=== PATIENT | male | born 1975 | race Caucasian/White ===

== ENCOUNTER 2018-04-15 14:02 | Outpatient (CLI) | payer BC ==
[~2018-04-15] VITALS: Ht 185.4 cm; Wt 102.1 kg
[2018-04-15] MEDS ORDERED: RIFA550T PO (14:03)
== END 2018-04-15 14:04 ==
LOC: PREOP 14:02
PROVIDERS: ATTEND Surgery
DX: Z01.818 Encounter for other preprocedural examination (principal)

== ENCOUNTER 2018-04-20 05:38 | Outpatient (CLI) | payer BC ==
[~2018-04-20] VITALS: Ht 185.4 cm; Wt 102.1 kg
[~2018-04-20 05:38] MED LIST: RIFA550T PO
== END 2018-04-20 10:38 | disposition home or self-care (01) ==
LOC: PREOP 05:38
PROVIDERS: ATTEND Surgery
DX: Z01.818 Encounter for other preprocedural examination (principal)
CPT/HCPCS: 87081

== ENCOUNTER 2018-04-20 09:47 | Day surgery (SDC) | payer BC ==
[~2018-04-20] VITALS: Ht 185.4 cm; Wt 102.1 kg
[2018-04-20] MEDS ORDERED: NS IV 500 ML 500 ML ONE (10:02)
[2018-04-20] MEDS ORDERED: NS IV 500 ML 500 ML IV PRN (10:02)
[2018-04-20] MEDS ORDERED: MIDAZOLAM 2 MG/2 ML (VERSED) VIAL IVP ONE (10:15)
[2018-04-20] MEDS ORDERED: fentaNYL INJECTION 100 MCG/2 ML AMP IVP ONE (10:15)
[2018-04-20 10:17] VITALS: BP 143/92
--- NOTE | 2018-04-20 10:34 | Conscious Sedation/ASA ---
Conscious Sedation Pre-Proced Time 10:33 ASA Score 2 For ASA 3 and 4: Consider anesthesia and medical clearance. Also, for patients with a history of failed moderate sedation consider anesthesia. Airway Lungs Heart ASA score ASA 1: a normal healthy patient ASA 2: a patient with a mild systemic disease (mid diabetes, controlled hypertension, obesity ASA 3: a patient with a severe systemic disease that limits activity (angina , COPD, prior Myocardial infarction) ASA 4: a patient with an incapacitating disease that is a constant threat to life (CHF, renal failure) ASA 5: a moribund patient not expected to survive 24 hrs. (ruptured aneurysm) ASA 6: a declared brain- patient whose organs are being harvested. For emergent operations, add the letter E after the classification Mallampati Classification Grade 2 Sedation Plan Discussed options with patient/fam The patient is an appropriate candidate to undergo the planned procedure, sedation, and anesthesia. The patient immediately re-assessed prior to indication. ALKA HOOVER MD Apr 20, 2018 10:34
[2018-04-20] MEDS ORDERED: fentaNYL INJECTION 100 MCG/2 ML AMP ONE (12:07)
[2018-04-20] MEDS ORDERED: MIDAZOLAM 2 MG/2 ML (VERSED) VIAL ONE ×4 (12:07)
--- NOTE | 2018-04-20 12:38 | Endo Procedure Record ---
Endo Procedure Report Date of Procedure Last Colonoscopy: No Apr 20, 2018 Surgeon (s) ALKA HOOVER MD Post Procedure/Op Diagnosis 2 mm cecal polyp Procedure Performed colonoscopy to cecum Hot biopsy polypectomy Description of Procedure Anesthesia Type: Conscious Sedation Specimen(s) collected/removed cecal polyp Description of the Procedure Indication for the procedure: This gentleman came in for colonoscopy to investigate long-term diarrhea. He reported a family history of Crohn's disease. Informed consent was obtained after reviewing the procedure in detail. Description of the procedure: He was placed in left lateral rectus position and his vital signs were monitored. Conscious sedation was achieved using Versed and fentanyl. Digital rectal examination was unremarkable. The colonoscope was then introduced into the rectum and advanced to the cecum The quality of bowel preparation was rather sub-optimal. I was able to suction the liquid fecal material and complete examination. The scope was then retracted slowly and the mucosa examined in a systematic fashion. Findin mm polyp at the cecum, that was excised with hot biopsy forceps He tolerated the procedure well and was taken back to the nursing area in a stable condition. Impression: Chronic diarrhea. No evidence of inflammatory bowel disease. Incidental, small cecal polyp excised. Recommend repeating in 5 years. Copy Copies To 1: JESUS LESTER MD, XAVIER M MD Apr 20, 2018 12:38
--- NOTE | 2018-04-20 12:39 | Discharge Inst-Simple/Standard ---
Discharge Inst-Standard Discharge Medications New, Converted or Re-Newed RX: Other Patient Instructions/Follow Up Plan of Care/Instructions/FU: to return for hernia surgery as scheduled. Repeat colonoscopy in 5 years Activity as Tolerated: Yes Discharge Diet: No Restrictions ALKA HOOVER MD Apr 20, 2018 12:39
[2018-04-20 13:05] VITALS: BP 107/64
[2018-04-20 13:35] VITALS: BP 137/85
[2018-04-20 13:45] VITALS: BP 137/85
== END 2018-04-20 13:45 | disposition home or self-care (01) ==
LOC: ENDO 09:47
PROVIDERS: ATTEND Surgery
DX: D12.0 Benign neoplasm of cecum (principal); K52.9 Noninfective gastroenteritis and colitis, unspecified; K43.9 Ventral hernia without obstruction or gangrene; Z83.79 Family history of other diseases of the digestive system; F17.290 Nicotine dependence, other tobacco product, uncomplicated; Z80.3 Family history of malignant neoplasm of breast

== ENCOUNTER 2018-04-24 06:00 | Day surgery (SDC) | payer BC ==
[~2018-04-24] VITALS: Ht 185.4 cm; Wt 108.9 kg
[2018-04-24 06:10] VITALS: BP 133/95
[2018-04-24] MEDS: LACTATED RINGERS 1,000 ML IV PRN ×2 (06:20→09:05)
[2018-04-24] MEDS ORDERED: ceFAZolin 2 GM IV Premixed 50 ML ONE (06:32)
[2018-04-24] MEDS ORDERED: ceFAZolin 2 GM IV Premixed 50 ML IV ONE (06:45)
[2018-04-24] MEDS ORDERED: fentaNYL INJECTION 100 MCG/2 ML AMP ONE ×2 (06:50→09:25)
[2018-04-24] MEDS ORDERED: ONDANSETRON 4 MG/2 ML (SDV) Z0FRAN ONE (06:50)
[2018-04-24] MEDS ORDERED: ROCURONIUM 10 MG/ML 5 ML SYRINGE IV ONE ×2 (06:50→09:29)
[2018-04-24] MEDS ORDERED: LIDOCAINE PF 2% 5 ML (XYLOCAINE) VIAL ONE (06:50)
[2018-04-24] MEDS ORDERED: proPOfol 200 MG/20 ML (DIPRIVAN) VIAL IV ONE (06:50)
[2018-04-24] MEDS ORDERED: MIDAZOLAM 2 MG/2 ML (VERSED) VIAL ONE (06:50)
[2018-04-24] MEDS ORDERED: DEXAMETHASONE 10 MG/ML (DECADRON) 1 ML VIAL ONE (06:54)
[2018-04-24] MEDS ORDERED: SEVOFLURANE (ULTANE) 15 ML INHAL SOLN ONE ×9 (06:54→11:02)
[2018-04-24] MEDS ORDERED: BUP/EPI 0.5% 1:200,000 (SENSORCAINE) 30 ML VIAL ONE (07:22)
--- NOTE | 2018-04-24 08:23 | Progress Note-Pre Operative ---
Pre-Operative Progress Note H&P Reviewed The H&P was reviewed, patient examined and no changes noted. Date Seen by Provider: Apr 16, 2018 Time Seen by Provider: 15:00 Date H&P Reviewed: Apr 24, 2018 Time H&P Reviewed: 08:23 Pre-Operative Diagnosis: Ventral hernia ALKA HOOVER MD Apr 24, 2018 08:23
[2018-04-24] MEDS ORDERED: BUPIVACAINE 0.5% 30 ML (SENSORCAINE) VIAL ONE (09:45)
[2018-04-24] MEDS ORDERED: GLYCOPYRROLATE 0.2 MG/ML (ROBINUL) 2 ML VIAL ONE (09:48)
[2018-04-24] MEDS ORDERED: NEOSTIGMINE 1 MG/ML 5 ML SYRINGE ONE (09:48)
[2018-04-24] MEDS ORDERED: OXYC1TAB87 PO (09:58)
--- NOTE | 2018-04-24 09:58 | Operative Report ---
Operative Report Date of Procedure/Surgery Apr 24, 2018 Surgeon (s) ALKA HOOVER MD Projection Engineer (s): N/A Post-Operative Diagnosis Ventral hernia Procedure Performed Robotic assisted repair with mesh Description of Procedure Anesthesia Type: General Estimated blood loss (mL): Minimal Specimen(s) collected/removed Hernia contents Description of the Procedure Indication for the procedure: This gentleman presented with a symptomatic, primary ventral hernia, in relation to his umbilicus. He was offered repair using minimally invasive technique with robotic assistance and reinforcement with mesh. Informed consent was obtained after reviewing the operative details and complications of hematoma, infection of the mesh and a low incidence of recurrence. Description of the procedure: He was placed supine on the operative table and general anesthesia induced. 2 g of Ancef were administered intravenously as prophylaxis against wound infection. Sequential compression devices were placed around his legs, to minimize the risk of venous thrombosis. Abdomen was prepared and draped in the usual sterile manner. Pneumoperitoneum was established using a Veress needle introduced over the right subcostal region , along the mid clavicular line. Intra-abdominal pressure was maintained at 15 mmHg, using carbon dioxide insufflation. A 12 mm trocar was placed and anatomy visualized using the high definition, 3-dimensional laparoscope, associated with da Darrel system. Extra-peritoneal fat was contained within the hernia, the defect measuring about 2 cm in diameter. The area under direct view, I placed another 12 mm trocar over the right side of the abdomen, along the mid axillary line, followed by an 8 mm trocar over the right lower quadrant. The robotic system was then docked in place. The hernia contents were excised using hook cautery, defining the defect. Intra -abdominal pressure was reduced to 11 mmHg, to allow closure of the defect without tension. This was accomplished using a 0V LOC, nonabsorbable suture with the robotic assistance. The repair was then reinforced using a polypropylene mesh measuring 11.4 cm in diameter. It was secured temporally using the self-retaining balloon system and the edges was sutured with 20, absorbable be LOC sutures with robotic assistance. Hemostasis was satisfactory and the operation concluded. Incisions were closed using 4-0 Vicryl, in a subcuticular fashion. 0.5 percent Marcaine with epinephrine was infiltrated along the incisions, both preemptively and at the conclusion of the operation. He tolerated the procedure well, was extubated in the operating room and taken to the recovery room in a stable condition. Findings of the Procedure See operative report Allergies and Home Medications Allergies Coded Allergies: No Known Drug Allergies (Unverified , 04/15/18) Home Medications Rifaximin 550 Mg Tablet, 550 MG PO TID, (Reported) started on 04/13/18 Patient Home Medication List Home Medication List Reviewed: Yes ALKA HOOVER MD Apr 24, 2018 09:58
--- NOTE | 2018-04-24 09:59 | Discharge Inst-Simple/Standard ---
Discharge Inst-Standard Discharge Medications New, Converted or Re-Newed RX: RX on Chart Patient Instructions/Follow Up Plan of Care/Instructions/FU: Band-Aids off in 48 hours. Follow-up in 4 weeks Activity as Tolerated: No Goal: No lifting over 20 pounds Discharge Diet: No Restrictions ALKA HOOVER MD Apr 24, 2018 09:59
[2018-04-24] MEDS ORDERED: morphine INJ 10 MG/ML 1ML (SYR OR VIAL) ONE (10:31)
[2018-04-24] MEDS ORDERED: morphine INJ 10 MG/ML 1ML (SYR OR VIAL) IVP ONE (10:45)
[2018-04-24] MEDS ORDERED: HYDROmorphone 2 MG/ML VIAL (DILAUDID) IV ONE (10:45)
[2018-04-24] MEDS ORDERED: ONDANSETRON 4 MG/2 ML (SDV) Z0FRAN IVP PRN (10:45)
[2018-04-24 11:45] VITALS: BP 116/79
[2018-04-24 11:50] VITALS: BP 116/79
[2018-04-24 12:15] VITALS: BP 120/84
[2018-04-24] MEDS ORDERED: oxyCODONE/APAP 5/325MG (PERCOCET 5) TABLET PO ONE (12:15)
[2018-04-24 12:45] VITALS: BP 118/93
--- NOTE | 2018-04-24 12:59 | Anesthesia-General Post-Op ---
General Patient Condition Mental Status/LOC: Same as Preop Cardiovascular: Satisfactory Nausea/Vomiting: Absent Respiratory: Satisfactory Pain: Controlled Complications: Absent Post Op Complications Complications None Follow Up Care/Instructions Patient Instructions None needed. Anesthesia/Patient Condition Patient Condition Patient is doing well, no complaints, stable vital signs, no apparent adverse anesthesia problems. No complications reported per nursing. D/C home per [facility] Criteria: Yes JOO CRESPO CRNA Apr 24, 2018 12:59
== END 2018-04-24 12:55 | disposition home or self-care (01) ==
LOC: SDC 06:00
PROVIDERS: ATTEND Surgery
DX: K43.9 Ventral hernia without obstruction or gangrene (principal); G47.30 Sleep apnea, unspecified; F17.220 Nicotine dependence, chewing tobacco, uncomplicated

== ENCOUNTER 2018-04-28 15:26 | Emergency (ER) | payer BC ==
[~2018-04-28] VITALS: Ht 182.9 cm; Wt 108.9 kg
[~2018-04-28 15:26] MED LIST changes: +OXYC1TAB87 PO
[2018-04-28] MEDS ORDERED: NS IV 1000 ML 1,000 ML IV ONE (15:52)
[2018-04-28] MEDS ORDERED: fentaNYL INJECTION 100 MCG/2 ML AMP IVP STA (15:52)
[2018-04-28] MEDS ORDERED: IOHEXOL 350 MG/ML 100 ML (OMNIPAQUE 350) VIAL IV ONE (16:00)
[2018-04-28] MEDS ORDERED: NS 100 ML (IVPB) BAG IV ONE (16:00)
[2018-04-28] MEDS ORDERED: RECEIVED CONTRAST (Hold Metformin) IV SCH (16:00)
[2018-04-28] MEDS ORDERED: ONDANSETRON 4 MG/2 ML (SDV) Z0FRAN IVP ONE (16:00)
[2018-04-28 16:11] LABS: BASOPHILS % (AUTO) 0 % (0-10); EOSINOPHILS # (AUTO) 0.1 10^3/uL (0.0-0.3); EOSINOPHILS % (AUTO) 1 % (0-10); HEMATOCRIT 49 % (40-54); HEMOGLOBIN 17.7 G/DL (13.3-17.7); LYMPHOCYTES # (AUTO) 1.9 X 10^3 (1.0-4.0); LYMPHOCYTES % (AUTO) 15 % (12-44); MEAN CORPUSCULAR HEMOGLOBIN 33 PG (25-34); MEAN CORPUSCULAR HGB CONC 37 G/DL (32-36); MEAN CORPUSCULAR VOLUME 91 FL (80-99); MEAN PLATELET VOLUME 10.9 FL (7.4-10.4); MONOCYTES # (AUTO) 1.4 X 10^3 (0.0-1.0); MONOCYTES % (AUTO) 11 % (0-12); NEUTROPHILS # (AUTO) 8.9 X 10^3 (1.8-7.8); NEUTROPHILS % (AUTO) 72 % (42-75); PLATELET COUNT 302 10^3/uL (130-400); WHITE BLOOD COUNT 12.3 10^3/uL (4.3-11.0)
[2018-04-28 16:30] LABS: ALANINE AMINOTRANSFERASE 48 U/L (0-55); ALBUMIN 4.5 GM/DL (3.2-4.5); ALKALINE PHOSPHATASE 106 U/L (40-136); AMYLASE 47 U/L (25-125); BILIRUBIN,TOTAL 2.1 MG/DL (0.1-1.0); BUN/CREATININE RATIO 17; CALCIUM 10.5 MG/DL (8.5-10.1); CARBON DIOXIDE 22 MMOL/L (21-32); CHLORIDE 97 MMOL/L (98-107); CREATININE SERUM 1.16 MG/DL (0.60-1.30); GFR ESTIMATED > 60; GLUCOSE 130 MG/DL (70-105); LIPASE 25 U/L (8-78); POTASSIUM 3.5 MMOL/L (3.6-5.0); SODIUM 136 MMOL/L (135-145); TOTAL PROTEIN 8.1 GM/DL (6.4-8.2)
--- NOTE | 2018-04-28 16:36 | ED Abdominal Pain ---
General Chief Complaint: Abdominal/GI Problems Stated Complaint: POSS COMPLICATION W/ HERNIA SURG. Nursing Triage Note: pt arrived pov with family with c/o vomiting with pain since friday. Pt had hernia surgery here on friday by Kannan. Pt states he has had fever and chills. Pt has not contacted surgeon Sepsis Screen: Possible Sepsis Risk Source of Information: Patient Exam Limitations: No Limitations History of Present Illness Date Seen by Provider: Apr 28, 2018 Time Seen by Provider: 15:50 Initial Comments 42 -year-old male who was brought to the emergency room by his family with complaints of vomiting and pain for the past 3 days. He reports that on 04/24/18 he had a umbilical hernia repair by Dr. Hoover and he woke up Friday morning vomiting and has not been able to keep anything down. He reports that he did have a small bowel movement this morning. Timing/Duration: 3-4 Days Severity/Quality: Cramping Location: Generalized Abdomen Associated Symptoms: Nausea/Vomiting Allergies and Home Medications Allergies Coded Allergies: No Known Drug Allergies (Unverified , 04/15/18) Home Medications Oxycodone HCl/Acetaminophen 1 Each Tablet, 1 TAB PO Q4H PRN for PAIN-MODERATE Prescribed by: ALKA HOOVER on 04/24/18 0958 Rifaximin 550 Mg Tablet, 550 MG PO TID, (Reported) started on 04/13/18 Patient Home Medication List Home Medication List Reviewed: Yes Review of Systems Review of Systems Constitutional: no symptoms reported, see HPI Gastrointestinal: See HPI, Abdomen Distended, Abdominal Pain, Nausea, Vomiting All Other Systems Reviewed Negative Unless Noted: Yes Past Jaifzhx-Uqhmmw-Qjihpk Hx Past Med/Social Hx: Reviewed Nursing Past Med/Soc Hx Patient Social History Type Used: Smokeless Tobacco 2nd Hand Smoke Exposure: Yes Recent Foreign Travel: No Contact w/Someone Who Travel: No Recent Infectious Disease Expo: No Recent Hopitalizations: No Immunizations Up To Date Tetanus Booster (TDap): Unknown PED Vaccines UTD: No Seasonal Allergies Seasonal Allergies: Yes Past Medical History Surgeries: Yes Appendectomy Respiratory: Yes Asthma Cardiac: No Neurological: No Genitourinary: No Gastrointestinal: Yes Abdominal Hernia, Chronic Diarrhea Musculoskeletal: Yes Arthritis, Chronic Back Pain Endocrine: No HEENT: No Cancer: No Psychosocial: No Integumentary: Yes (rash on back of legs and groin) Blood Disorders: No Family Medical History Reviewed Nursing Family Hx Physical Exam Vital Signs Vital Signs - First Documented 04/28/18 15:33 Temp 97.7 Pulse 121 Resp 22 B/P (MAP) 116/88 (97) Pulse Ox 99 O2 Delivery Room Air Capillary Refill : Less Than 3 Seconds Height/Weight/BMI Height: 6'0" Weight: 240lbs. 0.0oz. 108.040429ai; 31.7 BMI Method:Stated General Appearance: WD/WN, no apparent distress HEENT: PERRL/EOMI, normal ENT inspection, TMs normal, pharynx normal Respiratory: chest non-tender, lungs clear, normal breath sounds, no respiratory distress, no accessory muscle use Cardiovascular: normal peripheral pulses, regular rate, rhythm, no edema, no gallop, no JVD, no murmur Gastrointestinal: normal bowel sounds, soft, no organomegaly, no pulsatile mass , tenderness (generalized abdominal tenderness no focal area.) Extremities: no pedal edema, no calf tenderness, normal capillary refill Neurologic/Psychiatric: alert, normal mood/affect, oriented x 3 Skin: normal color, warm/dry Progress/Results/Core Measures Results/Orders Lab Results Laboratory Tests Test 04/28/18 15:50 Range/Units White Blood Count 12.3 H 4.3-11.0 10^3/uL Red Blood Count 5.34 4.35-5.85 10^6/uL Hemoglobin 17.7 13.3-17.7 G/DL Hematocrit 49 40-54 % Mean Corpuscular Volume 91 80-99 FL Mean Corpuscular Hemoglobin 33 25-34 PG Mean Corpuscular Hemoglobin Concent 37 H 32-36 G/DL Red Cell Distribution Width 13.0 10.0-14.5 % Platelet Count 302 130-400 10^3/uL Mean Platelet Volume 10.9 H 7.4-10.4 FL Neutrophils (%) (Auto) 72 42-75 % Lymphocytes (%) (Auto) 15 12-44 % Monocytes (%) (Auto) 11 0-12 % Eosinophils (%) (Auto) 1 0-10 % Basophils (%) (Auto) 0 0-10 % Neutrophils # (Auto) 8.9 H 1.8-7.8 X 10^3 Lymphocytes # (Auto) 1.9 1.0-4.0 X 10^3 Monocytes # (Auto) 1.4 H 0.0-1.0 X 10^3 Eosinophils # (Auto) 0.1 0.0-0.3 10^3/uL Basophils # (Auto) 0.0 0.0-0.1 10^3/uL Sodium Level 136 135-145 MMOL/L Potassium Level 3.5 L 3.6-5.0 MMOL/L Chloride Level 97 L 98-107 MMOL/L Carbon Dioxide Level 22 21-32 MMOL/L Anion Gap 17 H 5-14 MMOL/L Blood Urea Nitrogen 20 H 7-18 MG/DL Creatinine 1.16 0.60-1.30 MG/DL Estimat Glomerular Filtration Rate > 60 BUN/Creatinine Ratio 17 Glucose Level 130 H 70-105 MG/DL Calcium Level 10.5 H 8.5-10.1 MG/DL Corrected Calcium 10.1 8.5-10.1 MG/DL Total Bilirubin 2.1 H 0.1-1.0 MG/DL Aspartate Amino Transf (AST/SGOT) 30 5-34 U/L Alanine Aminotransferase (ALT/SGPT) 48 0-55 U/L Alkaline Phosphatase 106 40-136 U/L Total Protein 8.1 6.4-8.2 GM/DL Albumin 4.5 3.2-4.5 GM/DL Amylase Level 47 25-125 U/L Lipase 25 8-78 U/L My Orders Orders - HONG SAUCEDO Comprehensive Metabolic Panel (04/28/18 15:52) Lipase (04/28/18 15:52) Amylase (04/28/18 15:52) Ua Culture If Indicated (04/28/18 15:52) Saline Lock/Iv-Start (04/28/18 15:52) Cbc With Automated Diff (04/28/18 15:52) Ct Abdomen/Pelvis W (04/28/18 15:52) Fentanyl Injection (Sublimaze Injection (04/28/18 15:52) Saline Lock/Iv-Start (04/28/18 15:52) Ns Iv 1000 Ml (Sodium Chloride 0.9%) (04/28/18 15:52) Iohexol Injection (Omnipaque 350 Mg/Ml 1 (04/28/18 16:00) Contrast Received (Contrast Received) (04/28/18 16:00) Ns (Ivpb) (Sodium Chloride 0.9% Ivpb Bag (04/28/18 16:00) Ondansetron Injection (Zofran Injectio (04/28/18 16:00) Ns Iv 1000 Ml (Sodium Chloride 0.9%) (04/28/18 16:45) Benzocaine Extension Tube (Hurricaine Ex (04/28/18 17:59) Promethazine Injection (Phenergan Injec (04/28/18 18:09) Medications Given in ED Current Medications Medications Dose Ordered Sig/Ana Route Start Time Stop Time Status Last Admin Dose Admin Iohexol 100 ml ONCE ONCE IV 04/28/18 16:00 04/28/18 16:01 DC 04/28/18 16:42 100 ML Ondansetron HCl 8 mg ONCE ONCE IVP 04/28/18 16:00 04/28/18 16:01 DC 04/28/18 16:12 8 MG Sodium Chloride 100 ml ONCE ONCE IV 04/28/18 16:00 04/28/18 16:01 DC 04/28/18 16:42 80 ML Sodium Chloride 1,000 ml @ 0 mls/hr Q0M ONCE IV 04/28/18 15:52 04/28/18 15:54 DC 04/28/18 16:11 1,000 MLS/HR Vital Signs/I&O 04/28/18 15:33 Temp 97.7 Pulse 121 Resp 22 B/P (MAP) 116/88 (97) Pulse Ox 99 O2 Delivery Room Air Blood Pressure Mean: 97 Progress Progress Note : Time: 18:00 Progress Note I have seen and evaluated the patient. I've informed him of his laboratory and imaging studies. [facility] is on diversion at this time and I informed him of the need to transfer to [facility]. I have spoke to Dr. Hoover at this time he agrees to accept the patient to his services at [facility]. The patient agrees with plans for transfer. Diagnostic Imaging Diagonstic Imaging: CT Plain Films/CT/US/NM/MRI: abdomen, pelvis Comments NAME: EDWARD LYONS [facility] REC#: [id number] PT STATUS: REG ER : 1975 PHYSICIAN: HONG SAUCEDO ADMIT DATE: 04/28/18/ER Signed Date of Exam:04/28/18 CT ABDOMEN/PELVIS W PROCEDURE: CT abdomen and pelvis with contrast. TECHNIQUE: Multiple contiguous axial images were obtained through the abdomen and pelvis after administration of intravenous contrast. INDICATION: Status post umbilical hernia repair on 04/24/2018. Patient complains of abdominal and pelvic pain with nausea and vomiting. COMPARISON: No prior studies are available for comparison. FINDINGS: There is subsegmental atelectasis in both lower lobes. The liver demonstrates generalized low density, consistent with hepatic steatosis. No discrete liver mass is seen. The gallbladder is unremarkable. There is no biliary ductal dilatation. The pancreas and spleen are unremarkable. No adrenal mass is detected. The kidneys are unremarkable. Aorta is nonaneurysmal. There are moderately dilated fluid-filled small bowel loops in the mid and left abdomen. There are normal-caliber bowel loops in the right abdomen. The colon is decompressed. Features are concerning for small bowel obstruction. No definite abdominal wall defect or recurrent hernia is seen. There is no free fluid or fluid collection. No free air is identified. Bladder is unremarkable. IMPRESSION: 1. Bibasilar subsegmental atelectasis. 2. Features concerning for small bowel obstruction with moderate fluid-filled small bowel loops with transition to normal caliber in the [id number] small bowel. No fluid collection or free air is detected. 3. Hepatic steatosis. Dictated by: Dictated on workstation # [id number] Dict: 04/28/181655 Trans: 04/28/181745 [id number] [id number] Interpreted by: RICKY BROWN MD Electronically signed by: RICKY BROWN MD 04/28/18 174 Reviewed: Reviewed by Me Departure Impression Primary Impression: Postoperative intestinal obstruction Disposition: S[facility]-TRM HOSP Condition: Stable/Unchanged Transfer Time Spoke to Accepting Phy: 18:00 Transfer Progress Notes I spoke to Dr. Hoover knee agrees to accept the patient at [facility] to his services. Transfer Time: 18:00 Transfer Facility: [facility] Method of Transfer: EMS ([facility]) Departure-Patient Inst. Referrals: JESUS LESTER MD (PCP) Primary Care Physician HONG SAUCEDO Apr 28, 2018 16:36
[2018-04-28] MEDS ORDERED: NS IV 1000 ML 1,000 ML IV SCH (16:45)
--- NOTE | 2018-04-28 17:05 | Diagnostic Imaging Report ---
PROCEDURE: CT abdomen and pelvis with contrast. TECHNIQUE: Multiple contiguous axial images were obtained through the abdomen and pelvis after administration of intravenous contrast. INDICATION: Status post umbilical hernia repair on 04/24/2018. Patient complains of abdominal and pelvic pain with nausea and vomiting. COMPARISON: No prior studies are available for comparison. FINDINGS: There is subsegmental atelectasis in both lower lobes. The liver demonstrates generalized low density, consistent with hepatic steatosis. No discrete liver mass is seen. The gallbladder is unremarkable. There is no biliary ductal dilatation. The pancreas and spleen are unremarkable. No adrenal mass is detected. The kidneys are unremarkable. Aorta is nonaneurysmal. There are moderately dilated fluid-filled small bowel loops in the mid and left abdomen. There are normal-caliber bowel loops in the right abdomen. The colon is decompressed. Features are concerning for small bowel obstruction. No definite abdominal wall defect or recurrent hernia is seen. There is no free fluid or fluid collection. No free air is identified. Bladder is unremarkable. IMPRESSION: 1. Bibasilar subsegmental atelectasis. 2. Features concerning for small bowel obstruction with moderate fluid-filled small bowel loops with transition to normal caliber in the [id number] small bowel. No fluid collection or free air is detected. 3. Hepatic steatosis. Dictated by: Dictated on workstation # [id number]
[2018-04-28] MEDS ORDERED: HURRICAINE EXT TUBE (BENZOCAINE) ONE (17:59)
[2018-04-28] MEDS ORDERED: PROMETHAZINE INJ 25 MG/ML (PHENERGAN) AMP ONE (18:09)
[2018-04-28] MEDS ORDERED: fentaNYL INJECTION 100 MCG/2 ML AMP ONE (18:18)
[2018-04-28] MEDS ORDERED: fentaNYL INJECTION 100 MCG/2 ML AMP IVP ONE (18:30)
[2018-04-28] MEDS ORDERED: PROMETHAZINE INJ 25 MG/ML (PHENERGAN) AMP IVP ONE (18:30)
[2018-04-28 18:40] VITALS: BP 150/92
== END 2018-04-28 18:50 | disposition short-term general hospital (02) ==
LOC: EDUNIT# 15:26 → ER 15:28
DX: K91.30 Postprocedural intestinal obstruction, unspecified as to partial versus complete (principal); J45.909 Unspecified asthma, uncomplicated; Z98.890 Other specified postprocedural states; Z87.19 Personal history of other diseases of the digestive system; Z77.22 Contact with and (suspected) exposure to environmental tobacco smoke (acute) (chronic); Z90.49 Acquired absence of other specified parts of digestive tract
CPT/HCPCS: 36415; 74177; 80053; 82150; 83690; 85025; 96361; 96374; 96375; 96376

== ENCOUNTER → 2022-01-29 | Outpatient (CLI) | payer BC ==
[~2022-01-29] MED LIST changes: +RT-ALBUTEROL SULF 2.5 MG/3 ML PRE-MIX VIAL INH ONE
== END ==
LOC: RT 07:49
PROVIDERS: ATTEND Family Medicine
DX: J43.9 Emphysema, unspecified (principal)
CPT/HCPCS: 94060; 94726; 94729